=== PATIENT | female | born 1955 | race Caucasian/White ===

== ENCOUNTER 2018-07-03 12:47 | Emergency (ER) | payer MEDICARE ==
[2018-07-03] MEDS ORDERED: ASPIRIN 325 MG TABLET PO ONE (13:05)
--- NOTE | 2018-07-03 13:06 | Emergency Department Record ---
History of Present Illness - General Chief Complaint: Chest Pain Stated Complaint: CHEST PAIN Time Seen by Provider: 07/03/18 12:57 Source: Patient Mode of Arrival: Ambulatory Limitations: No limitations - History of Present Illness Initial Comments: The patient is here due to a one week hx of chest pressure with walking and exerting herself. She has been having mild SHASHI with it also along with an elevated BP. The patient denies any nausea or sweating or "pain" but has been having the pressure. She does have cardiac risk factors of HTN, high cholesterol and tobacco use. MD Complaint: Chest pain Onset/Timin -: Week(s) Onset: During exertion Worsens With: Exertion, Movement - Related Data Home Medications Medication Instructions Recorded Confirmed Last Taken Atorvastatin Calcium [Lipitor] 20 mg PO DAILY 07/03/18 07/03/18 Unknown Estradiol [Estrace] 2 mg PO DAILY 07/03/18 07/03/18 07/03/18 Hydrocodone/Acetaminophen 1 tab PO BID 07/03/18 07/03/18 Unknown [Hydrocodone/Acetaminophen 10mg/325mg] Lisinopril [Prinivil] 20 mg PO DAILY 07/03/18 07/03/18 07/03/18 Nortriptyline HCl [Pamelor] 25 mg PO DAILY 07/03/18 07/03/18 Unknown Sertraline HCl [Zoloft] 100 mg PO DAILY 07/03/18 07/03/18 07/03/18 Allergies Allergy/AdvReac Type Severity Reaction Status Date / Time cefaclor [From Ceclor] AdvReac unknown Verified 07/03/18 12:52 morphine AdvReac TACHYCARDIA Verified 07/03/18 12:52 Travel Screening - Travel/Exposure Within Last 30 Days Have you traveled within the last 30 days?: No Review of Systems Constitutional: Denies: Chills, Fever Eyes: Denies: Eye discharge ENT: Denies: Congestion Respiratory: Denies: Cough, Dyspnea Cardiovascular: Reports: Dyspnea on exertion. Denies: Chest pain Endocrine: Reports: Fatigue Gastrointestinal: Denies: Nausea Genitourinary: Denies: Dysuria Musculoskeletal: Denies: Arthralgia Skin: Denies: Bruising Past Medical History - SOCIAL HISTORY Smoking Status: Current every day smoker Alcohol Use: Rare Drug Use: None - RESPIRATORY Hx Respiratory Disorders: Yes Comment:: seasonal allergies - CARDIOVASCULAR Hx Cardio Disorders: Yes Hx Hypertension: Yes Comment:: high cholesterol - NEURO Hx Neuro Disorders: Yes Hx of Migraines: Yes - GI Hx GI Disorders: No - Hx Genitourinary Disorders: No - ENDOCRINE Hx Endocrine Disorders: No - MUSCULOSKELETAL Hx Musculoskeletal Disorders: Yes Hx Arthritis: Yes (lt hip) - PSYCH Hx Psych Problems: Yes Hx Depression: Yes - HEMATOLOGY/ONCOLOGY Hx Hematology/Oncology Disorders: No Family Medical History Any Significant Family History?: No Physical Exam - General General Appearance: Alert, Oriented x3, Cooperative, No acute distress - Head Head exam: Atraumatic, Normocephalic, Normal inspection - Eye Eye exam: Normal appearance, PERRL, EOMI - ENT Throat exam: Normal inspection. negative: Tonsillar erythema, Tonsillar exudate - Neck Neck exam: Normal inspection, Full ROM. negative: Lymphadenopathy, Tenderness - Respiratory Respiratory exam: Normal lung sounds bilaterally. negative: Respiratory distress - Cardiovascular Cardiovascular Exam: Regular rate, Normal rhythm, Normal heart sounds - GI/Abdominal GI/Abdominal exam: Soft, Normal bowel sounds. negative: Tenderness - Extremities Extremities exam: Normal inspection, Full ROM, Normal capillary refill. negative: Tenderness - Neurological Neurological exam: Alert. negative: Motor sensory deficit - Psychiatric Psychiatric exam: negative: Anxious - Skin Skin exam: negative: Rash Course Vital Signs 07/03/18 12:49 Temperature 97.7 F Pulse Rate 96 H Respiratory 20 Rate Blood Pressure 155/108 Pulse Ox 99 - Reevaluation(s) Reevaluation #1: The patient is resting comfortably with no complaints at this time. Her BP is improved and she denies any chest pain or pressure. I did explain the need to stay in the hospital overnight to have her heart checked and for an EST. The patient is refusing the plan to be admitted. I then did explain that the risks of leaving are that the patient could go home and have an PR, stroke, become disabled and even . The patient understands and accepts the risks and is to see her PCP GARETH or return to the ER for any worsening symptoms. She does presently have proper decision making capacity and does understands the risks of leaving AMA. 07/03/18 13:40 Medical Decision Making - Data Complexity MDM Data: Labs Ordered and/or Reviewed, X-Ray Ordered and/or Reviewed, EKG Ordered and/or Reviewed - Lab Data Result diagrams: 07/03/18 12:55 07/03/18 12:55 - EKG Data -: EKG Interpreted by Me EKG: No Acute Changes, Normal EKG - Radiology Data Radiology results: Report reviewed (CXR: Neg.) Disposition Disposition: Discharge Clinical Impression: Pressure in chest Disposition: Against Medical Advice Condition: (2) Stable Instructions: Chest Pain (ED) Additional Instructions: Please continue your regular medicines and please see your doctor tomorrow as planned. Return to the ER for any worsening symptoms. Forms: Patient Portal Access Time of Disposition: 13:43 Quality - Quality Measures Quality Measures: N/A - Blood Pressure Screening View Details: Yes Does Patient Have Any of the Following: Active Dx of HTN Blood Pressure Classification: Hypertensive Reading Systolic Measurement: 137 Diastolic Measurement: 95 Screening for High Blood Pressure: Patient Exclusion, Hx of HTN [G9744]
[2018-07-03 13:12] LABS: HEMOGLOBIN 13.9 gm/dl (11.6-16.0); MEAN CELL VOLUME 95.5 fl (81-97); MEAN CORPUSCULAR HEMOGLOBIN 33.2 pg (27-33); MEAN CORPUSCULAR HGB CONC 34.8 g/dl (32-36); MEAN PLATELET VOLUME 9.4 fl (7.4-10.4); PLATELET COUNT 273 K/uL (130-400); RED BLOOD COUNT 4.19 M/uL (3.80-5.40); RED CELL DISTRIBUTION WIDTH 13.3 % (11.5-14.5); WHITE BLOOD COUNT W/O DIFF 9.4 K/uL (4.2-12.2)
[2018-07-03 13:22] LABS: BLOOD UREA NITROGEN 15 mg/dL (8-23); CREATININE 0.5 mg/dL (0.5-0.9); EST GLOMERULAR FILTRATION RATE > 60 mL/min; PLATELET ESTIMATE NORMAL (NORMAL)
[2018-07-03 13:23] LABS: TOTAL PROTEIN 6.7 g/dL (6.6-8.7)
[2018-07-03 13:25] LABS: GLUCOSE,RANDOM 96 mg/dL (74-109); PARTIAL THROMBOPLASTIN TIME 27.8 SECONDS (24.5-39.1); PROTHROMBIN TIME (PATIENT) 9.8 SECONDS (9.5-12.1)
[2018-07-03 13:28] LABS: ALB/GLOB RATIO 1.6 (1.1-1.8); ALBUMIN 4.1 g/dL (4.0-5.0); ALKALINE PHOSPHATASE 57 U/L (45-87); ALT/SGPT 10 U/L (<33); AST/SGOT 13 U/L (10.0-35.0)
[2018-07-03 13:39] LABS: THYROID STIMULATING HORMONE 0.93 uIU/mL (0.270-4.20)
--- NOTE | 2018-07-04 07:09 | RADIOLOGY REPORT ---
EXAM: CHEST, TWO VIEWS HISTORY: HIGH BLOOD PRESSURE AND CHEST PAIN. TECHNIQUE: Two views of the chest were obtained. Comparison: Chest and rib series 05/07/13. FINDINGS: The cardiac silhouette is within normal size limits. The pulmonary vasculature is nondilated. The lungs appear hyperinflated. No focal pulmonary consolidation. No pleural effusion or pneumothorax. Suture anchor noted in the right humeral head. IMPRESSION: 1. NO ACUTE FOCAL LUNG FINDINGS. 2. PULMONARY HYPERINFLATION WHICH COULD BE SEEN WITH COPD. JOB NUMBER: [id number] [facility]
== END 2018-07-03 13:53 | disposition left against medical advice (07) ==
LOC: ER 12:47
DX: R07.89 Other chest pain (principal); I10 Essential (primary) hypertension; F17.210 Nicotine dependence, cigarettes, uncomplicated
CPT/HCPCS: 71046; 80053; 84443; 84484; 85027; 85610; 85730; 93005; 93010; 99284

== ENCOUNTER 2019-05-05 07:57 | Emergency (ER) | payer MEDICARE ==
--- NOTE | 2019-05-05 08:21 | Emergency Department Record ---
History of Present Illness - General Chief complaint: Female Urogenital Problem Stated complaint: UTI Time Seen by Provider: 05/05/19 08:19 Source: Patient Mode of Arrival: Ambulatory - History of Present Illness Initial comments: Urinating blood this morning. Thinks she has a UTI. She was awakened from sleep around 0200 with dysuria and frequency. She denies fever, chills, nausea, vomiting, flank pain or abdominal pain. She has no history fo kidney stones. She has had UTI's in the past for which bactrim has worked for her in the past. Onset/Timin -: Hour(s) Location: Suprapubic Radiation: Non-radiating Severity: Severe Severity scale (1-10): 8 Quality: Burning Consistency: Constant Improves with: None Worsens with: Urination Patient : No Associated Symptoms: Dysuria, Hematuria - Related Data Sexually active: No Previous Rx's Medication Instructions Recorded Phenazopyridine HCl [Pyridium] 200 mg PO TID #5 tab 05/05/19 Sulfamethoxazole/Trimethoprim 1 each PO BID #19 tablet 05/05/19 [Bactrim Ds Tablet] Allergies Allergy/AdvReac Type Severity Reaction Status Date / Time cefaclor [From Ceclor] AdvReac unknown Verified 07/03/18 12:52 morphine AdvReac TACHYCARDIA Verified 07/03/18 12:52 Travel Screening - Travel/Exposure Within Last 30 Days Have you traveled within the last 30 days?: No Review of Systems Reviewed: No additional complaints except as noted below Constitutional: Reports: As per HPI. Denies: Chills, Fever, Malaise, Night sweats, Weakness, Weight change Eyes: Reports: As per HPI. Denies: Eye discharge, Eye pain, Photophobia, Vision change ENT: Reports: As per HPI. Denies: Congestion, Dental pain, Ear pain, Epistaxis, Hearing loss, Throat pain Respiratory: Reports: As per HPI. Denies: Cough, Dyspnea, Hemoptysis, Stridor, Wheezes Cardiovascular: Reports: As per HPI. Denies: Arrhythmia, Chest pain, Dyspnea on exertion, Edema, Murmurs, Orthopnea, Palpitations, Paroxysmal nocturnal dyspnea, Rheumatic Fever, Syncope Endocrine: Reports: As per HPI. Denies: Fatigue, Heat or cold intolerance, Polydipsia, Polyuria Gastrointestinal: Reports: As per HPI. Denies: Abdominal pain, Constipation, Diarrhea, Hematemesis, Hematochezia, Melena, Nausea, Vomiting Genitourinary: Reports: As per HPI. Denies: Abnormal menses, Discharge, Dyspareunia, Dysuria, Frequency, Hematuria, Incontinence, Retention, Urgency Musculoskeletal: Reports: As per HPI. Denies: Arthralgia, Back pain, Gout, Joint swelling, Myalgia, Neck pain Skin: Reports: As per HPI. Denies: Bruising, Change in color, Change in hair/nails, Lesions, Pruritus, Rash Neurological: Reports: As per HPI. Denies: Abnormal gait, Confusion, Headache, Numbness, Paresthesias, Seizure, Tingling, Tremors, Vertigo, Weakness Psychiatric: Reports: As per HPI. Denies: Anxiety, Auditory hallucinations, Depression, Homicidal thoughts, Suicidal thoughts, Visual hallucinations Hematological/Lymphatic: Reports: As per HPI. Denies: Anemia, Blood Clots, Easy bleeding, Easy bruising, Swollen glands Past Medical History - SOCIAL HISTORY Smoking Status: Current every day smoker - RESPIRATORY Hx Respiratory Disorders: Yes Comment:: smoker - CARDIOVASCULAR Hx Cardio Disorders: Yes Hx Hypertension: Yes Comment:: high cholesterol - NEURO Hx Neuro Disorders: Yes Hx of Migraines: Yes - GI Hx GI Disorders: No Comment:: constipated - Hx Genitourinary Disorders: No - ENDOCRINE Hx Endocrine Disorders: No - MUSCULOSKELETAL Hx Musculoskeletal Disorders: Yes Hx Arthritis: Yes (lt hip) - PSYCH Hx Psych Problems: Yes Hx Depression: Yes - HEMATOLOGY/ONCOLOGY Hx Hematology/Oncology Disorders: No Family Medical History Any Significant Family History?: No Physical Exam - General General Appearance: Alert, Oriented x3, Cooperative, No acute distress - Head Head exam: Normal inspection - Eye Eye exam: Normal appearance, PERRL, EOMI. negative: Conjunctival injection, Nystagmus Pupils: Normal accommodation - ENT ENT exam: Normal exam, Mucous membranes moist, Normal external ear exam, Normal orophraynx, TM's normal bilaterally Ear exam: Normal external inspection. negative: External canal tenderness Nasal Exam: Normal inspection. negative: Discharge, Sinus tenderness Mouth exam: Normal external inspection, Tongue normal Teeth exam: Normal inspection. negative: Dental caries Throat exam: Normal inspection. negative: Tonsillar erythema, Tonsillar exudate - Neck Neck exam: Normal inspection, Full ROM. negative: Lymphadenopathy, Meningismus, Tenderness - Respiratory Respiratory exam: Normal lung sounds bilaterally. negative: Respiratory distress - Cardiovascular Cardiovascular Exam: Regular rate, Normal rhythm, Normal heart sounds - GI/Abdominal GI/Abdominal exam: Soft, Normal bowel sounds. negative: Tenderness - Rectal Rectal exam: Deferred - exam: Deferred - Extremities Extremities exam: Normal inspection, Full ROM, Normal capillary refill. negative: Calf tenderness, Pedal edema, Tenderness - Back Back exam: Reports: Normal inspection, Full ROM. Denies: CVA tenderness (R), CVA tenderness (L), Muscle spasm, Rash noted, Tenderness - Neurological Neurological exam: Alert, CN II-XII intact, Normal gait, Oriented X3, Reflexes normal. negative: Motor sensory deficit - Psychiatric Psychiatric exam: Normal affect, Normal mood - Skin Skin exam: Dry, Intact, Normal color, Warm Course Vital Signs 05/05/19 08:09 Temperature 97.7 F Pulse Rate 88 Respiratory 20 Rate Blood Pressure 153/102 Pulse Ox 94 L Medical Decision Making - Data Complexity MDM Data: Labs Ordered and/or Reviewed (UA +bacteria, trace LE, +blood) Disposition Disposition: Discharge Clinical Impression: UTI (urinary tract infection) Qualifiers: Urinary tract infection type: acute cystitis Hematuria presence: with hematuria Qualified Code(s): N30.01 - Acute cystitis with hematuria Disposition: Home, Self-Care Condition: (1) Good Instructions: Urinary Tract Infection in Women (ED) Additional Instructions: Take bactrim as directed until gone. Take pyridium as directed for 2 days. It will turn your urine orange Tylenol alternated with ibuprofen as needed for pain or fevers. PCP follow up after antiiotics completed. Prescriptions: Sulfamethoxazole/Trimethoprim [Bactrim Ds Tablet] 1 each PO BID #19 tablet Phenazopyridine HCl [Pyridium] 200 mg PO TID #5 tab Quality - Quality Measures Quality Measures: N/A - Blood Pressure Screening Does Patient Have Any of the Following: No Blood Pressure Classification: Hypertensive Reading Systolic Measurement: 153 Diastolic Measurement: 102 Screening for High Blood Pressure: Patient Exclusion, Hx of HTN [G9744]
[2019-05-05 08:42] LABS: URINE APPEARANCE CLEAR; URINE BILIRUBIN NEGATIVE (NEGATIVE); URINE BLOOD LARGE (NEGATIVE); URINE COLOR YELLOW; URINE GLUCOSE (UA) NEGATIVE (NEGATIVE); URINE KETONE NEGATIVE (NEGATIVE); URINE LEUKOCYTE ESTERASE SMALL (NEGATIVE); URINE NITRITE NEGATIVE (NEGATIVE); URINE UROBILINOGEN 0.2 E.U./dL (0.20 - 1.00)
[2019-05-05 09:02] LABS: URINE BACTERIA FEW
[2019-05-05] MEDS ORDERED: TMP/SMZ 160MG/800MG TAB PO ONE (09:07)
[2019-05-05] MEDS ORDERED: PHENAZOPYRIDINE HCL 95 MG TABLET PO ONE (09:07)
== END 2019-05-05 09:20 | disposition home or self-care (01) ==
LOC: ER 07:57
DX: N30.01 Acute cystitis with hematuria (principal); I10 Essential (primary) hypertension; F17.210 Nicotine dependence, cigarettes, uncomplicated
CPT/HCPCS: 81001; 99283